=== PATIENT | male | born 1985 | race Caucasian/White ===

== ENCOUNTER 2023-10-09 22:04 | Emergency (ER) | payer BC ==
[2023-10-09 22:09] VITALS: BP 145/88; PULSE 81
[2023-10-09] MEDS ORDERED: Lidocaine 1% 5 ML VIAL INJECT ONE (22:11)
== END 2023-10-09 22:22 | disposition home or self-care (01) ==
LOC: CC.ED 22:04
DX: S61.012A Laceration without foreign body of left thumb without damage to nail, initial encounter (principal); W26.0XXA Contact with knife, initial encounter
CPT/HCPCS: 12001; 99282; J3490